=== PATIENT | female | born 2000 | race American Indian/Alaskan Native ===

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

== ENCOUNTER 2022-01-14 13:26 | Emergency (ER) | payer SELFPAY ==
[2022-01-14 14:31] VITALS: BP 127/73
--- NOTE | 2022-01-14 20:12 | XRay Report ---
RIGHT HAND 4 VIEW(S) INDICATION / CLINICAL INFORMATION: Crush injury fifth finger COMPARISON: None available. FINDINGS: BONES / JOINT(S): No acute fracture or subluxation. No significant arthritis. SOFT TISSUES: No significant abnormality. ADDITIONAL FINDINGS: None. IMPRESSION: 1. No acute findings. Signer Name: Eric Jones MD Signed: 01/14/2022 8:07 PM Workstation Name: [id number]
--- NOTE | 2022-01-14 20:37 | Emergency Department Report ---
ED Upper Extremity Inj HPI - General Chief Complaint: Extremity Injury, Upper Stated Complaint: RT HAND PINKY FINGER INJURY Time Seen by Provider: 01/14/22 19:25 Source: patient Mode of arrival: Ambulatory Limitations: No Limitations - History of Present Illness Initial Comments: Patient is a 21-year-old female presenting to ED with complaint of pain and swelling to her right little finger after slamming it in a car door yesterday. - Related Data Previous Rx's Medication Instructions Recorded Last Taken Type Sertraline [Zoloft] 25 mg PO QDAY #30 tab 04/03/20 Unknown Rx Allergies Allergy/AdvReac Type Severity Reaction Status Date / Time No Known Allergies Allergy Verified 04/01/20 20:44 ED Review of Systems ROS: Stated complaint: RT HAND PINKY FINGER INJURY Other details as noted in HPI Comment: All other systems reviewed and negative Constitutional: denies: chills, fever Respiratory: denies: cough, shortness of breath, wheezing Cardiovascular: denies: chest pain, palpitations Gastrointestinal: denies: abdominal pain, nausea, diarrhea Genitourinary: denies: urgency, dysuria, discharge Musculoskeletal: denies: back pain, joint swelling, arthralgia Skin: denies: rash, lesions Psychiatric: denies: anxiety, depression ED Past Medical Hx - Social History Smoking Status: Never Smoker Substance Use Type: None - Medications Home Medications: Home Medications Medication Instructions Recorded Confirmed Last Taken Type Sertraline [Zoloft] 25 mg PO QDAY #30 tab 04/03/20 Unknown Rx ED Physical Exam - General Limitations: No Limitations General appearance: alert, in no apparent distress - Head Head exam: Present: atraumatic, normocephalic - Respiratory Respiratory exam: Present: normal lung sounds bilaterally. Absent: respiratory distress - Cardiovascular Cardiovascular Exam: Present: regular rate, normal rhythm. Absent: systolic murmur, diastolic murmur, rubs, gallop - GI/Abdominal GI/Abdominal exam: Present: soft, normal bowel sounds - Extremities Exam Extremities exam: Present: other (Swelling and tenderness to the distal phalanx of the right little finger with dried blood around the nail. The nail is intact.) - Neurological Exam Neurological exam: Present: alert, oriented X3, CN II-XII intact - Psychiatric Psychiatric exam: Present: normal affect, normal mood - Skin Skin exam: Present: warm, dry, intact ED Course Vital Signs 01/14/22 14:29 Temperature 97.8 F Pulse Rate 70 Respiratory 18 Rate Blood Pressure 127/73 [Right] O2 Sat by Pulse 99 Oximetry ED Medical Decision Making - Medical Decision Making X-ray of right hand reveals no acute bony injury. Recommended ice and OTC analgesics for pain and inflammation. Patient stable for discharge home with return precautions. Critical care attestation.: If time is entered above; I have spent that time in minutes in the direct care of this critically ill patient, excluding procedure time. ED Disposition Clinical Impression: Injury of right little finger Disposition: 01 HOME / SELF CARE / HOMELESS Is pt being admited?: No Does the pt Need Aspirin: No Condition: Stable Time of Disposition: 20:36
[2022-01-14] MEDS ORDERED: SODIUM CHLORIDE 0.9% 1000 ML 2,000 ML ONE (21:35)
== END 2022-01-14 21:15 | disposition home or self-care (01) ==
LOC: ED 13:26
DX: S69.91XA Unspecified injury of right wrist, hand and finger(s), initial encounter (principal); Z79.899 Other long term (current) drug therapy; W22.8XXA Striking against or struck by other objects, initial encounter; Y93.89 Activity, other specified; Y92.89 Other specified places as the place of occurrence of the external cause; Y99.8 Other external cause status
CPT/HCPCS: 73130; 99283; J7030